=== PATIENT | male | born 1950 | race Caucasian/White ===

== ENCOUNTER 2025-01-24 02:16 | Emergency (ER) | payer OTHER, SELFPAY ==
[2025-01-24 02:18] VITALS: BP 148/99
[2025-01-24 02:59] VITALS: BMI 23.9
[2025-01-24 03:02] VITALS: BP 157/81
[2025-01-24 03:26] LABS: Hematocrit 36.9 % (39.0-52.0); Hemoglobin 12.9 g/dL (13.0-18.0); Mean Corp Hgb Conc. 35.0 g/dL (33.0-37.0); Mean Corpuscular Volume 82.9 fL (80.0-94.0); Nucleated Red Blood Cells % 0 % (-); Platelet Count 239 10^3/uL (130-400); Red Cell Dist. Width 12.9 % (11.5-14.5)
[2025-01-24 03:52] LABS: ALT (SGPT) < 10 U/L (0-50); AST (SGOT) 17 U/L (17-59); Albumin 4.0 g/dl (3.5-5.0); Alkaline Phosphatase 70 U/L (38-126); Blood Urea Nitrogen 15 mg/dl (9-20); Calcium 8.9 mg/dl (8.4-10.2); Carbon Dioxide 26 mmol/L (22-30); Chloride 103 mmol/L (98-107); Estimated Creatinine Clearance 108 ml/min; Glucose 218 mg/dl (70-99); Potassium 4.6 mmol/L (3.5-5.1); Sodium 133 mmol/L (135-145); Total Protein 6.8 g/dl (6.3-8.2); eGFR > 60.00
[2025-01-24 04:00] VITALS: BP 134/78
--- NOTE | 2025-01-24 04:11 | ED.GENMED ---
History of Present Illness
General
Chief Complaint: Abnormal Lab Value
Source: patient
Exam Limitations: none
Time Seen by Provider: 01/24/25 03:55
Nursing documentation reviewed up to this point in time: agreed with
History of Present Illness
History of Present Illness:
The patient is a 74-year-old male with pmh of Parkinson's disease, diabetes, who presents to the ER today with concern for hyperkalemia, alerted by a phone call from healthcare providers indicating elevated potassium levels, initially considered an
emergency. The patient received this call last yesterday around 4 a.m notifying him that he needs to go to the ER immediately for elevated potassium levels. However, subsequent testing revealed normal potassium levels. The patient believes previous
consistent consumption of bananas has caused a transient increase in potassium levels, possibly due to his individual physiological response, similar to past experiences two decades ago. The patient is currently asymptomatic, denying any chest pain
or other complaints, dizziness, lightheadedness, palpitation. The recent high potassium level concern arose before a scheduled deep brain stimulation procedure for Parkinsons disease, currently set for February 27.
Review of Systems
Review of Systems
All Other Systems: ROS reviewed and negative except as documented in HPI and ROS
Phy Exam
Physical Exam
Physical Exam:
General: Alert, no acute distress.
Skin: Warm, dry.
Head: Normocephalic, atraumatic.
Neck: Supple, trachea midline.
Eye, Ears, Nose, Mouth, and Throat: Oral mucosa moist.
Cardiovascular: Regular rate and rhythm, no murmurs. Normal peripheral perfusion, no edema.
Respiratory: Respirations are non-labored. No wheezes, rales, or rhonchi
Gastrointestinal: Abdomen nondistended.
Back: Normal range of motion, normal alignment.
Musculoskeletal: Normal range of motion, normal strength.
Neurological: Alert and oriented to person, place, time, and situation, no focal neurological deficit observed. cN II-XII intact.
Psychiatric: Cooperative, appropriate mood & affect.
Course
Orders/Labs/Results
Orders:
Orders
01/24/25 03:04
Electrocardiogram (*1) Urgent
Reason for Study: Other
Other Reason for Exam: high potassium
Cardiology Consult: Unknown
01/24/25 03:05
EKG- Treatment ONCE
01/24/25 03:13
CBC/With Diff [Complete Blood Count/With Diff] Urgent
Comprehensive Metabolic Panel Urgent
Abnormal Lab Results
01/24/25
03:13
RBC 4.45 L 10^6/uL
(4.70-6.10)
Hgb 12.9 L g/dL
(13.0-18.0)
Hct 36.9 L %
(39.0-52.0)
Sodium 133 L mmol/L
(135-145)
Glucose 218 H mg/dl
(70-99)
01/24/25 03:13
01/24/25 03:13
Vital Signs
Initial and Last Documented VS:
Initial Vital Signs
Temp Pulse Resp BP Pulse Ox
98.4 F 84 28 148/99 98
01/24/25 02:18 01/24/25 02:18 01/24/25 02:18 01/24/25 02:18 01/24/25 02:18
Last Documented Vital Signs
Temp Pulse Resp BP Pulse Ox
98.4 F 75 28 144/90 97
01/24/25 02:18 01/24/25 07:06 01/24/25 07:06 01/24/25 07:06 01/24/25 07:06
MDM/Problems Addressed
Differential Diagnosis Includes:
The Differential Diagnosis includes, in no particular order and is not limited to:
1. Pseudohyperkalemia
2. Medication-induced hyperkalemia
3. Dietary-induced hyperkalemia
4. Chronic kidney disease
5. Diabetes-related metabolic imbalance
6. Adrenal insufficiency
7. Heart failure
8. Renal tubular acidosis
9. Hypokalemia (considering past experiences)
10. Normal physiological variant
MDM/Problems Addressed:
1. The patients potassium level is currently normal, patient not aware of outpatient value, could have been from hemolysis. He has been advised to monitor for any symptoms of hyperkalemia, including chest pain or palpitations, and return to the
emergency room if they occur.
I personally reviewed patient's med list and I am not able to appreciate any medications that would significantly impact potassium.
2. The patient is preparing for a deep brain stimulation procedure and will continue his pre-operative evaluation.
3. He is scheduled to follow up with his neurologist regarding his Parkinsons disease and ensure shared understanding and reassurance to his surgical team.
Patient stable for discharge. Discussed case with ED attending who is okay with plan.
4. Repeat blood tests are planned in coordination with his upcoming medical visits to verify potassium levels and ensure surgical safety.
*Pulse Oximetry
SaO2: 98
Oxygen Mode of Delivery: Room air
Patient hypoxic: no
*EKG
Interpreted by ED Provider?: Yes
EKG Intrepretation Date: 01/24/25
Interpretation: normal
Comparison EKG: changes noted (new RBBB otherwise ECG similar to prior )
Heart Rate: 79
Rate: normal
*Critical Care Note
Total Time (30-74mins, 75-104mins- exclusive of procedures): Not Applicable
Patient Management
Social determinants of health affecting care: Other (patient has good outpatient follow up)
Escalation/DeEscalation of care consider admission/obs:
admit not indicated, patient stable for discharge
ED Attending Note
-
Portions of this chart may have been created with voice recognition software.� Occasional wrong word or��sound alike� substitutions may have occurred due to the inherent limitations of voice recognition software.
Discharge Plan
Departure
Patient Disposition: Home (Routine Discharge)
Date of Disposition: 01/24/25
Time of Disposition: 05:06
Patient with high blood pressure during this ER visit?: Yes
Condition: Good
Discharge Problem:
Abnormal laboratory test
Instructions: Hyperkalemia (DC), BLOOD PRESSURE
Prescriptions:
No Action
milk thistle 500 mg Capsule
500 mg PO DAILY
Metamucil Packet
1 packet PO DAILY
Rx Instructions:
1-1 1/2 packets
lisinopril 5 mg Tablet
5 mg PO DAILY
cholecalciferol (vitamin D3) [Vitamin D3] 10 mcg (400 unit) Capsule
2,000 mcg PO DAILY
Lantus U-100 Insulin
12 units SC DAILY
Rx Instructions:
at dinner
Novolog FlexPen U-100 Insulin
50 units SC DAILY
Rx Instructions:
50-60 units daily
Propolis
500 mg PO DAILY
aspirin
81 mg PO DAILY
hydrocodone bitartrate
5 mg PO DAILY
royal jelly
500 mg PO DAILY
sildenafil
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
simvastatin
10 mg PO DAILY
Activity Restrictions/Additional Instructions:
Please have blood work repeated with your primary care provider. Please continue to monitor your symptoms. Please follow-up with your neurologist. Please have blood work rechecked as an outpatient.
PLEASE RETURN TO ER SHOULD YOU DEVELOP ANY CHEST PAIN, SHORTNESS OF BREATH, DIZZINESS, PALPITATIONS, LIGHTHEADEDNESS, OR ANY OTHER SIGNS OR SYMPTOMS WORRISOME TO YOU.
Interventions
Interventions:
*Risk Screen - Suicide Last Done: 01/24/25 02:18
*General Assessment Last Done: 01/24/25 04:18
*Neglect/Abuse Screening Last Done: 01/24/25 06:50
*ED COVID-19 Vaccine History Last Done: 01/24/25 04:18
*ED Influenza Vaccine History Last Done: 01/24/25 04:18
[facility] Fall Risk Assessment Tool Last Done: 01/24/25 04:23
*Nursing Disposition Last Done: 01/24/25 07:06
Discharge Date and Time
Discharge Date/Time: 01/24/25 07:07
Print Language: NIGERIAN
[2025-01-24 05:00] VITALS: BP 148/81
[2025-01-24 06:00] VITALS: BP 149/90
[2025-01-24 07:06] VITALS: BP 144/90
== END 2025-01-24 07:07 | disposition home or self-care (01) ==
LOC: EMR 02:16
PROVIDERS: EMERGENCY PHYSICIAN Student in an Organized Health Care Education/Training Program; FAMILY PHYSICIAN Family Medicine
DX: E87.5 Hyperkalemia (principal); I45.10 Unspecified right bundle-branch block; R03.0 Elevated blood-pressure reading, without diagnosis of hypertension; E11.9 Type 2 diabetes mellitus without complications; G20.A1 Parkinson's disease without dyskinesia, without mention of fluctuations; Z79.4 Long term (current) use of insulin; Z79.82 Long term (current) use of aspirin
CPT/HCPCS: 99284; 80053; 85025; 93005